=== PATIENT | male | born 1940 | race Caucasian/White ===

== ENCOUNTER 2017-11-22 08:26 | Emergency (ER) | payer OTHER, MEDICAID ==
[~2017-11-22] VITALS: Ht 177.8 cm; Wt 75.3 kg
[2017-11-22 08:43] VITALS: Ht 177.8 cm; Wt 75.3 kg
[2017-11-22 10:28] VITALS: BP 118/65
== END 2017-11-22 10:28 | disposition home or self-care (01) ==
LOC: ED 08:26
DX: K64.4 Residual hemorrhoidal skin tags (principal); I10 Essential (primary) hypertension